=== PATIENT | female | born 1995 | race Caucasian/White ===

== ENCOUNTER 2017-06-05 05:19 | Emergency (ER) | payer OTHER ==
[~2017-06-05] VITALS: Ht 162.6 cm; Wt 59.1 kg
[2017-06-05 05:56] LABS: Urine Bacteria FEW /hpf (None Seen); Urine Blood TRACE /uL (Negative); Urine Mucus FEW (None Seen); Urine Specific Gravity 1.025 (1.001-1.035); Urine WBC 369 /hpf (0 - 5)
[2017-06-05 06:53] LABS: Basophils # (auto) 0 uL; Basophils % (auto) 0.1 % (0.0-2.0); Eosinophils # (auto) 0 uL; Hemoglobin 12.5 g/dL (12.2-16.2); Lymphocytes # (auto) 0.4 uL; Mean Corpuscular Hemoglobin 29.9 pg (28.0-32.0); Mean Corpuscular Volume 90.5 fL (80.0-100.0); Monocytes # (auto) 0.6 uL; Neutrophils # (auto) 20.5 uL; Neutrophils % (auto) 94.9 % (37.0-80.0); Platelet Count (auto) 326 10^3/uL (140-450); Red Blood Cells 4.19 10^6/uL (4.0-5.20); White Blood Cell 21.7 10^3/uL (4.4-10.8)
[2017-06-05 07:21] LABS: Potassium 3.3 mmol/L (3.5-5.1)
[2017-06-05 07:22] LABS: Albumin 3.6 g/dL (3.4-5.0); Bilirubin, Total 0.7 mg/dL (0.2-1.0); Calcium 8.5 mg/dL (8.5-10.1); Total Protein 7.7 g/dL (6.4-8.2)
[2017-06-05] MEDS ORDERED: IOHEXOL 300 MG/ML 100ML BOTTLE IJ ONE (07:37)
[2017-06-05] MEDS ORDERED: cefTRIAXone 1GM/10ml IVPUSH 10 ML IV ONE (08:00)
[2017-06-05] MEDS ORDERED: PANTOPRAZOLE 40 MG/10 ML VIAL IV ONE (08:00)
[2017-06-05] MEDS ORDERED: ONDANSETRON HCL 4 MG/2 ML VIAL ONE (08:15)
[2017-06-05] MEDS ORDERED: SODIUM CHLORIDE 0.9% 1,000 ML IV ONE ×2 (08:15→10:15)
[2017-06-05] MEDS ORDERED: ONDANSETRON HCL 4 MG/2 ML VIAL IV ONE (08:15)
[2017-06-05 10:01] VITALS: BP 104/65
[2017-06-05] MEDS ORDERED: NALBUPHINE HCL 10 MG/1ml INJECTION IV ONE (10:15)
[2017-06-05] MEDS ORDERED: HYDROcodone-ACET 10/325MG TAB PO ONE (10:45)
== END 2017-06-05 13:15 | disposition home or self-care (01) ==
LOC: ER 05:22
DX: N39.0 Urinary tract infection, site not specified (principal); E86.0 Dehydration; F12.10 Cannabis abuse, uncomplicated
CPT/HCPCS: 36415; 70450; 74177; 80053; 81001; 81025; 84702; 85025; 96361; 96374; 96375; 99285; C9113; J2300; J2405; J7030; Q9967

== ENCOUNTER 2018-06-11 19:15 | Emergency (ER) | payer OTHER ==
[~2018-06-11] VITALS: Ht 167.6 cm; Wt 59.0 kg
[2018-06-11] MEDS ORDERED: SODIUM CHLORIDE 0.9% 1,000 ML IVB ONE (19:36)
[2018-06-11] MEDS ORDERED: KETOROLAC TROMETH 30 MG/ML 1ML VIAL IV ONE (19:45)
[2018-06-11 20:22] LABS: Basophils # (auto) 0 uL; Basophils % (auto) 0.2 % (0.0-2.0); Eosinophils # (auto) 0 uL; Eosinophils % (auto) 0.3 % (0.0-7.0); Hematocrit 37.1 % (36.0-46.0); Hemoglobin 12.6 g/dL (12.2-16.2); Lymphocytes # (auto) 1.6 uL; Lymphocytes % (auto) 12.5 % (10.0-50.0); Mean Corpuscular Hemoglobin 31.1 pg (28.0-32.0); Mean Corpuscular Hgb Conc. 33.8 g/dL (32.0-36.0); Monocytes # (auto) 1.1 uL; Monocytes % (auto) 8.5 % (0.0-12.0); Neutrophils # (auto) 10.2 uL; Neutrophils % (auto) 78.5 % (37.0-80.0); Platelet Count (auto) 324 10^3/uL (140-450); Red Blood Cells 4.04 10^6/uL (4.0-5.20); Red Cell Distribution Width 12.9 % (11.8-14.3); White Blood Cell 12.9 10^3/uL (4.4-10.8)
[2018-06-11 20:43] LABS: Potassium 3.4 mmol/L (3.5-5.1)
[2018-06-11 20:48] LABS: Albumin 3.7 g/dL (3.4-5.0); BUN/Creatinine Ratio 7.4; Bilirubin, Total 0.4 mg/dL (0.2-1.0); Total Protein 7.8 g/dL (6.4-8.2)
[2018-06-11 21:29] LABS: Urine Bacteria FEW /hpf (None Seen); Urine Blood 1+ /uL (Negative); Urine Mucus FEW (None Seen); Urine WBC 167 /hpf (0 - 5)
[2018-06-11] MEDS ORDERED: traMADol HCL 50 MG TAB ONE (21:43)
[2018-06-11 21:46] VITALS: BP 132/80
[2018-06-11] MEDS ORDERED: traMADol HCL 50 MG TAB PO ONE (22:00)
== END 2018-06-11 21:40 | disposition home or self-care (01) ==
LOC: EDBD 19:15 → ER 19:15
DX: N39.0 Urinary tract infection, site not specified (principal); F17.210 Nicotine dependence, cigarettes, uncomplicated; F12.10 Cannabis abuse, uncomplicated
CPT/HCPCS: 36415; 74176; 80053; 81001; 81025; 85025; 94761; 96361; 96374; 99284; J1885; J7030

== ENCOUNTER 2018-08-05 13:15 | Emergency (ER) | payer OTHER ==
[~2018-08-05] VITALS: Ht 157.5 cm; Wt 60.3 kg
[2018-08-05 14:16] LABS: Basophils # (auto) 0 uL; Basophils % (auto) 0.6 % (0.0-2.0); Eosinophils # (auto) 0.1 uL; Eosinophils % (auto) 0.8 % (0.0-7.0); Hematocrit 39.6 % (36.0-46.0); Hemoglobin 13.4 g/dL (12.2-16.2); Lymphocytes # (auto) 1.9 uL; Lymphocytes % (auto) 25.9 % (10.0-50.0); Mean Corpuscular Hemoglobin 31.6 pg (28.0-32.0); Mean Corpuscular Hgb Conc. 33.7 g/dL (32.0-36.0); Mean Corpuscular Volume 93.8 fL (80.0-100.0); Monocytes # (auto) 0.5 uL; Monocytes % (auto) 7.3 % (0.0-12.0); Neutrophils # (auto) 4.7 uL; Neutrophils % (auto) 65.4 % (37.0-80.0); Nucleated Red Blood Cells % 0.1 %; Platelet Count (auto) 336 10^3/uL (140-450); Red Blood Cells 4.22 10^6/uL (4.0-5.20); Red Cell Distribution Width 14.2 % (11.8-14.3); White Blood Cell 7.1 10^3/uL (4.4-10.8)
[2018-08-05 14:20] LABS: Urine Bacteria FEW /hpf (None Seen); Urine Blood Negative /uL (Negative); Urine Mucus FEW (None Seen); Urine Specific Gravity 1.023 (1.001-1.035); Urine WBC 3 /hpf (0 - 5)
[2018-08-05] MEDS ORDERED: HYDROcodone-ACET 10/325MG TAB PO ONE (14:30)
[2018-08-05] MEDS ORDERED: MECLIZINE HCL 25 MG TAB PO ONE (14:30)
[2018-08-05 14:38] LABS: Anion Gap 7 (5-15); BUN/Creatinine Ratio 14.7; Blood Urea Nitrogen 11 mg/dL (7-18); Calcium 8.4 mg/dL (8.5-10.1); Carbon Dioxide 24 mmol/L (21-32); Chloride 110 mmol/L (98-107); GFR African American 127 mL/min; GFR Non-African American 105 mL/min; Glucose 77 mg/dL (74-106); Potassium 3.6 mmol/L (3.5-5.1); Sodium 141 mmol/L (136-145)
[2018-08-05 14:43] LABS: Alanine Aminotransferase 17 U/L (13-56); Alkaline Phosphatase 68 U/L (45-117); Aspartate Aminotransferase 14 U/L (15-37); Bilirubin, Total 0.4 mg/dL (0.2-1.0); Total Protein 7.1 g/dL (6.4-8.2)
[2018-08-05 16:40] VITALS: BP 112/81
== END 2018-08-05 17:23 | disposition home or self-care (01) ==
LOC: EDBD 13:15 → ER 13:17
DX: R42 Dizziness and giddiness (principal); R11.2 Nausea with vomiting, unspecified; R51 Headache; F17.210 Nicotine dependence, cigarettes, uncomplicated; F12.10 Cannabis abuse, uncomplicated; Z88.1 Allergy status to other antibiotic agents
CPT/HCPCS: 36415; 70450; 80053; 81001; 81025; 84484; 85025; 99284; J8597

== ENCOUNTER 2019-06-04 02:23 | Emergency (ER) | payer OTHER ==
[~2019-06-04] VITALS: Ht 162.6 cm; Wt 52.2 kg
[2019-06-04 05:27] VITALS: BP 138/97
[2019-06-04] MEDS ORDERED: ACETAMINOPHEN 500 MG TAB PO ONE (05:30)
[2019-06-04] MEDS ORDERED: IBUPROFEN 800 MG TAB PO ONE (05:30)
== END 2019-06-04 05:50 | disposition home or self-care (01) ==
LOC: ER 02:28
DX: S09.90XA Unspecified injury of head, initial encounter (principal); M79.89 Other specified soft tissue disorders; M54.2 Cervicalgia; M79.641 Pain in right hand; M25.562 Pain in left knee; M25.561 Pain in right knee; F17.210 Nicotine dependence, cigarettes, uncomplicated; F12.10 Cannabis abuse, uncomplicated; Z88.1 Allergy status to other antibiotic agents; V43.62XA Car passenger injured in collision with other type car in traffic accident, initial encounter; Y93.89 Activity, other specified; Y99.8 Other external cause status; Y92.410 Unspecified street and highway as the place of occurrence of the external cause
CPT/HCPCS: 70450; 71046; 73130; 73562; 81025

== ENCOUNTER 2019-11-04 23:54 | Emergency (ER) | payer OTHER | END 2019-11-05 01:22 | disposition left against medical advice (07) | LOC: ER 23:56 | DX: R51 Headache (principal); Z53.21 Procedure and treatment not carried out due to patient leaving prior to being seen by health care provider ==

== ENCOUNTER 2020-08-30 22:47 | Emergency (ER) | payer OTHER ==
[~2020-08-30] VITALS: Ht 162.6 cm; Wt 59.0 kg
[2020-08-31] MEDS ORDERED: HYDROcodone-ACET 5/325MG TAB PO ONE (03:15)
[2020-08-31 04:12] VITALS: BP 120/85
== END 2020-08-31 04:13 | disposition home or self-care (01) ==
LOC: ER 22:49
DX: S52.571A Other intraarticular fracture of lower end of right radius, initial encounter for closed fracture (principal); S52.614A Nondisplaced fracture of right ulna styloid process, initial encounter for closed fracture; R51.9 Headache, unspecified; F17.210 Nicotine dependence, cigarettes, uncomplicated; Y04.8XXA Assault by other bodily force, initial encounter; Y93.89 Activity, other specified; Y92.89 Other specified places as the place of occurrence of the external cause; Y99.8 Other external cause status
CPT/HCPCS: 29125; 70450; 71250; 72125; 73110

== ENCOUNTER 2021-08-08 00:03 | Emergency (ER) | payer OTHER ==
[~2021-08-08] VITALS: Ht 162.6 cm; Wt 51.9 kg
[2021-08-08 00:17] VITALS: BP 132/86
== END 2021-08-08 04:47 | disposition left against medical advice (07) ==
LOC: ER 00:03
DX: R51.9 Headache, unspecified (principal); H53.8 Other visual disturbances; Z53.21 Procedure and treatment not carried out due to patient leaving prior to being seen by health care provider

== ENCOUNTER 2021-08-16 08:31 | Emergency (ER) | payer OTHER, MEDICAID ==
[~2021-08-16] VITALS: Ht 162.6 cm; Wt 52.6 kg
[2021-08-16] MEDS ORDERED: KETOROLAC TROMETH 60MG/2ML VIAL IM ONE (11:15)
[2021-08-16] MEDS ORDERED: BACL5TAB2 PO (11:23)
[2021-08-16] MEDS ORDERED: IBUP800T27 PO (11:23)
[2021-08-16 11:35] VITALS: BP 132/86
== END 2021-08-16 11:36 | disposition home or self-care (01) ==
LOC: ER 08:31
DX: G50.0 Trigeminal neuralgia (principal); F17.210 Nicotine dependence, cigarettes, uncomplicated; F12.10 Cannabis abuse, uncomplicated; Z88.1 Allergy status to other antibiotic agents
CPT/HCPCS: 81025; 96372; 99283; J1885

== ENCOUNTER 2022-05-26 13:12 | Emergency (ER) | payer OTHER, MEDICAID ==
[~2022-05-26] VITALS: Ht 162.6 cm; Wt 71.5 kg
[~2022-05-26 13:12] MED LIST: BACL5TAB2 PO; IBUP800T27 PO
[2022-05-26] MEDS ORDERED: SODIUM CHLORIDE 0.9% 1,000 ML IV ONE (13:45)
[2022-05-26] MEDS ORDERED: ONDANSETRON HCL 4 MG/2 ML VIAL IV ONE (13:45)
[2022-05-26 14:16] LABS: Urine Bacteria FEW /hpf (None Seen); Urine Blood Negative /uL (Negative); Urine Mucus FEW (None Seen); Urine Specific Gravity 1.028 (1.001-1.035); Urine WBC 1 /hpf (0 - 5)
[2022-05-26 14:18] LABS: Hematocrit 38.3 % (36.0-46.0); Hemoglobin 12.8 g/dL (12.2-16.2); Mean Corpuscular Hemoglobin 31.3 pg (28.0-32.0); Mean Corpuscular Hgb Conc. 33.3 g/dL (32.0-36.0); Red Blood Cells 4.08 10^6/uL (4.0-5.20); Red Cell Distribution Width 12.6 % (11.8-14.3); White Blood Cell 13.2 10^3/uL (4.4-10.8)
[2022-05-26 14:21] LABS: Basophils % (manual) 0 (0.0-2.0); Blast Cells 0; Eosinophils % (manual) 0 (0-7); Metamyelocytes % 0; Myelocytes % 0; Promyelocytes % 0; Reactive Lymphocytes 0
[2022-05-26 15:05] LABS: Albumin 3.7 g/dL (3.4-5.0); BUN/Creatinine Ratio 21.2; Bilirubin, Total 0.6 mg/dL (0.2-1.0); Calcium 8.4 mg/dL (8.5-10.1); Magnesium 1.9 mg/dL (1.6-2.6); Potassium 3.6 mmol/L (3.5-5.1); Total Protein 7.1 g/dL (6.4-8.2)
[2022-05-26 15:41] LABS: Band Neutrophils % (manual) 11; Lymphocytes % (manual) 1 (10.0-50.0); Monocytes % (manual) 1 (0-12)
[2022-05-26] MEDS ORDERED: ONDA-144 PO (16:00)
[2022-05-26 16:22] VITALS: BP 103/61
== END 2022-05-26 16:24 | disposition home or self-care (01) ==
LOC: ER 13:12
DX: O21.0 Mild hyperemesis gravidarum (principal); Z88.1 Allergy status to other antibiotic agents; Z3A.13 13 weeks gestation of pregnancy
CPT/HCPCS: 36415; 80053; 81001; 83735; 85007; 85027; 96361; 96374; 99283; J2405; J7030